=== PATIENT | male | born 1990 | race Caucasian/White ===

== ENCOUNTER 2017-03-28 23:00 | Emergency (ER) | payer SELFPAY ==
[2017-03-28] MEDS ORDERED: BUPIVACAINE HCL/PF 5 MG/ML 10ML VIAL IJ ONE (23:06)
[2017-03-28] MEDS ORDERED: BUPIVACAINE HCL/PF 5 MG/ML 10ML VIAL IV ONE (23:07)
[2017-03-28] MEDS ORDERED: NEOMYCIN SU/BACITRAC ZN/POLY 1 EACH OINT.PACK TP ONE (23:40)
[2017-03-28 23:55] VITALS: BP 104/58
--- NOTE | 2017-03-29 00:10 | ED Physician Documentation ---
General Adult - HISTORIAN Historian: patient - HPI Stated Complaint: right hand lacerations Chief Complaint: Laceration/Recheck/Suture Additional Information: Accompanied by [employer] police sergeant, pt cuffed. Punched a tail light. Last tetanus within 2 years. - ROS CONST: no problems - PAST HX Past History: none Allergies/Adverse Reactions: Allergies Allergy/AdvReac Type Severity Reaction Status Date / Time No Known Allergies Allergy Verified 03/28/17 23:14 Home Medications: Ambulatory Orders Medication Instructions Recorded NK [NK] 03/28/17 - SOCIAL HX Smoking History: cigarettes - FAMILY HX Family History: No - VITAL SIGNS Vital Signs: Vital Signs Temp Pulse Resp BP Pulse Ox 98.6 F 102 H 18 128/65 94 03/28/17 23:00 03/28/17 23:00 03/28/17 23:00 03/28/17 23:00 03/28/17 23:00 - REVIEWED ASSESSMENTS Nursing Assessment Reviewed: Yes Vitals Reviewed: Yes Progress - Progress Progress: Repait of 3 lacerations on dorsal right hand. Digital blocks x 4 with 1 ml 0.5% bupivacaine.Each of three lac's repaired is 2 cm in length,. 2nd MCP: curvolinear, clean, sub q, repaired with #3 5-0 nylon. 3rd MCP, 2 cm in length , curvolinear, repaired with #3 5-0 nylon. 3rd is 1.5 cm in length, mid 4th proximal phalanx. All clean, all cleaned with soap and water and hibiclens and NS. 3 v R hand: no fx or foreign body, per me ED Results Lab/Radiology - Orders Orders: ED Orders Category Date Time Status Apply occlusive dressing D Care 03/28/17 23:40 Ordered HAND 3 VIEWS OR MORE [RAD] Stat Exams 03/28/17 Ordered Bupivacaine HCl/Pf [Marcaine 0.5%] Med 03/28/17 23:06 Once 50 mg IJ NOW ONE Bupivacaine HCl/Pf [Marcaine 0.5%] Med 03/28/17 23:07 Discontinued 50 mg IV .STK-MED ONE Neomycin Che/Bacitrac Zn/Poly [Triple Antibiotic Med 03/28/17 23:40 Once Ointment] 1 each TP NOW ONE General Adult Physical Exam - PHYSICAL EXAM GENERAL APPEARANCE: no distress EENT: eye inspection normal NECK: normal inspection RESPIRATORY: no resp distress BACK: normal inspection (erect posture, fluid movements w/o pain) SKIN: warm/dry, normal color, other (multiple abrasions dorsal tight MTP's fingers. ) EXTREMITIES: normal range of motion (all fingers) NEURO: CN's nml as tested, motor nml, sensation nml Discharge Clincal Impression: Laceration Referrals: Primary Doctor,No [Primary Care Provider] - 2 Days Home Medications: Ambulatory Orders NK [NK] 03/28/17 Condition: Good Disposition: 01 HOME, SELF-CARE Decision to Admit: NO Decision Time: 00:07
--- NOTE | 2017-03-29 07:02 | Diagnostic Imaging Report ---
WILI LEON~ [facility] [id number] [place], [place]. [address] ~ ~ ~ ~ Report Submission Date: Mar 29, 2017 12:14:35 AM CDT Patient ~ Study Name: VINCE RUSSO ~ Date: Mar 28, 2017 11:46:31 PM CDT ~ Modality Type: CR Gender: M ~ Description: UPPER EXTREMITY : 92 ~ Institution: [facility] Physician: WILI LEON ~ ~ ~ ~ Right hand 3 views History: Punching injury with lacerations Findings: A 2nd intermetacarpal webspace laceration is present with soft tissue gas. There is no fracture, dislocation, or radiopaque foreign body. Impression: 2nd intermetacarpal space laceration with soft tissue gas. ~ Electronically signed on Mar 29, 2017 12:14:35 AM CDT by: Elio LEDESMA
== END 2017-03-29 00:20 | disposition home or self-care (01) ==
LOC: ED 23:00
DX: S61.411A Laceration without foreign body of right hand, initial encounter (principal); X58.XXXA Exposure to other specified factors, initial encounter; Y93.9 Activity, unspecified; Y99.9 Unspecified external cause status
CPT/HCPCS: 73130; J3490; 12002; 99283